=== PATIENT | male | born 1945 | race African-American/Black ===

== ENCOUNTER 2021-05-17 09:49 | Inpatient (IN) ==
[2021-05-17 10:19] LABS: ABS Lymphocytes 0.7 10^3/ul (1.0-4.8); ABS Monocytes 0.6 10^3/ul (0-0.8); ABS Neutrophils 2.7 10^3/ul (1.5-7.7); Eosinophil % 0.9 %; Hematocrit 37 % (42-52); Lymphocyte % 17.2 %; Mean Corpuscular HGB Conc 32 g/dL (31-36); Mean Corpuscular Hemoglobin 26 pg (27-31); Mean Corpuscular Volume 79 fL (80-94); Nucleated Red Blood Cells % 0.1; Platelet Count 212 10^3/uL (150-450); Red Blood Count 4.69 10^6 /uL (4.18-5.48); Red Cell Distribution Width 17 % (10-15)
[2021-05-17 10:35] LABS: Albumin/Globulin Ratio 1.2 (1-3); Calcium 9.5 mg/dL (8.6-10.3); Globulin 3.4 g/dL (2-4); Potassium 3.3 mmol/L (3.5-5.0); Total Bilirubin 0.6 mg/dL (0.2-1.0); Total Protein 7.4 g/dL (6.4-8.9)
[2021-05-17 10:37] LABS: Troponin I 0.02 ng/mL (<0.03)
[2021-05-17] MEDS ORDERED: Potassium Chlor 20 meq TAB.ER PO ONE (10:43)
[2021-05-17] MEDS ORDERED: Morphine 4 MG/ML VIAL (1 ml) IV ONE (10:44)
[2021-05-17] MEDS ORDERED: Iohexol 350 (CONTRAST) 500 ML MDV IV ONE (11:47)
[2021-05-17] MEDS ORDERED: Enoxaparin 80 MG/0.8 ML SYR SUBCUT ONE (13:18)
[2021-05-17 14:07] LABS: Rapid COVID-19 Molecular Undetected (Undetected)
[2021-05-17 14:13] LABS: Troponin I 0.03 ng/mL (<0.03)
[2021-05-17] MEDS ORDERED: hydrALAZINE 20 mg/ml 1 ML Vial IV IV SLOW PU PRN (16:20)
[2021-05-17 21:03] LABS: TSH Ultra Thyroid Stim Horm 1.25 mcIU/mL (0.34-5.60)
[2021-05-17] MEDS: Enoxaparin 80 MG/0.8 ML SYR SUBCUT SCH (22:36)
[2021-05-18 07:19] LABS: ABS Lymphocytes 0.6 10^3/ul (1.0-4.8); ABS Monocytes 0.6 10^3/ul (0-0.8); ABS Neutrophils 2.7 10^3/ul (1.5-7.7); Eosinophil % 1.1 %; Hematocrit 35 % (42-52); Hemoglobin 11.7 g/dL (14.0-18.0); Lymphocyte % 15.8 %; Mean Corpuscular HGB Conc 33 g/dL (31-36); Mean Corpuscular Hemoglobin 26 pg (27-31); Mean Corpuscular Volume 79 fL (80-94); Mean Platelet Volume 7.1 fL (7.4-10.4); Nucleated Red Blood Cells % 0.1; Platelet Count 206 10^3/uL (150-450); Red Blood Count 4.48 10^6 /uL (4.18-5.48); Red Cell Distribution Width 18 % (10-15)
[2021-05-18 07:33] LABS: Calcium 9.8 mg/dL (8.6-10.3); Potassium 3.7 mmol/L (3.5-5.0)
[2021-05-18] MEDS: Enoxaparin 80 MG/0.8 ML SYR SUBCUT SCH (10:25)
[2021-05-18 16:08] VITALS: BP 138/76
== END 2021-05-18 20:17 | disposition home or self-care (01) | DRG 596 ==
LOC: ED 09:49 → EDHOLD 15:31 → SUATTDRO 15:31 → MEDTELE 20:39
PROVIDERS: ADMIT Internal Medicine; ATTEND Internal Medicine